=== PATIENT | female | born 1985 | race Caucasian/White ===

== ENCOUNTER 2017-08-22 13:24 | Emergency (ER) | payer SELFPAY ==
[2017-08-22 13:28] VITALS: O2SAT 97
--- NOTE | 2017-08-22 14:08 | EDPHY ---
H & P Stated Complaint: Possible 'spider bite' to left buttock for 3 days. HPI/ROS: CHIEF COMPLAINT: Rash, pain HISTORY OF PRESENT ILLNESS: Patient complains of 3-4 days of possible spider by and rash. This is located on the left labia and just distal to this. It does not involve perineum. At 1st it was mildly painful, but now moderate to severe. It has been constantly worsening. No drainage. No fluctuance. No vaginal pain or discharge. No vaginal bleeding. No pelvic pain. No abdominal pain. She does feel lymph node in the left groin. Worse with palpation. Minimal improvement rest. Sexually active with 1 partner who has no complaints of the genitalia. No fever or chills. No other associated complaints or modifying factors. Tetanus is up-to-date. No primary care physician. LMP 1 week ago REVIEW OF SYSTEMS: Ten systems reviewed and are negative unless otherwise noted in the HPI PAST MEDICAL HISTORY: None PAST SURGICAL HISTORY: None SOCIAL HISTORY: Smokes tobacco. Occasional alcohol. No illicit substance use. FAMILY HISTORY: Noncontributory EXAMINATION General Appearance: Alert, no distress Head: normocephalic, atraumatic Eyes: Pupils equal and round, no conjunctival pallor or injection ENT, Mouth: Mucous membranes moist Neck: Normal inspection, supple, non-tender Respiratory: No retractions or distress Cardiovascular: Regular rate. Pulses intact distally Gastrointestinal: Abdomen is soft and nontender. No tympany. No rigidity. 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 Shaved labia and mons. Folliculitis and cellulitis as depicted below. There is no Bartholin gland cyst. There is no abscess. No necrosis. No purulence. No vesicular lesions. No vaginal discharge. No perineum abnormality. Skin: Warm and dry. Skin changes as noted in the section. No abscess. No evidence of necrosis. No Bartholin's cyst Extremities: Nontender, no pedal edema Psychiatric: Mood and affect normal DIFFERENTIAL DIAGNOSES: Including but not limited to cellulitis, abscess, bartholin gland cyst, HSV, sexually transmitted infection MDM: 1:53 p.m. Cellulitis of the left labia and groin that I suspect is due to folliculitis from shaving. There is no evidence of Bartholin gland cyst. There is no abnormality of the perineum. There is no gangrenous appearance. Vital signs were well within normal limits. There is no drainable abscess. No vesicular lesions that i can appreciate. There is no lesion that needs to be drained. I do not feel there is any indication for laboratory studies or imaging. Urine sample will be obtained for gonorrhea and Chlamydia. Swabs were taken for the possibility of HSV. Elect to treat the patient empirically with Bactrim and Keflex for skin infection. I would like her to be closely monitored with re- evaluation in 1-2 days for the possibility of abscess formation. She is to refrain from further shaving of the genitalia. She will follow up on the results of the gonorrhea, chlamydia and HSV test. She is to return to ER for any pelvic pain, vaginal discharge or bleeding. She is to return here for any palpable fluctuance or drainage from the site. She is comfortable this plan and discharged home in stable condition Source: Patient Exam Limitations: No limitations - Personal History Current Tetanus Diphtheria and Acellular Pertussis (TDAP): Yes - Medical/Surgical History Hx Asthma: No Hx Chronic Respiratory Disease: No Hx Diabetes: No Hx Cardiac Disease: No Hx Renal Disease: No Hx Cirrhosis: No Hx Alcoholism: No Hx HIV/AIDS: No Hx Splenectomy or Spleen Trauma: No Other PMH: Depression, anxiety. - Social History Smoking Status: Heavy smoker Constitutional: Initial Vital Signs Temperature (C) 97.7 F 08/22/17 13:24 Heart Rate 81 08/22/17 13:24 Respiratory Rate 16 08/22/17 13:24 Blood Pressure 132/91 H 08/22/17 13:24 O2 Sat (%) 97 08/22/17 13:24 O2 Delivery Mode Room Air Allergies/Adverse Reactions: No Known Allergies Allergy (Unverified 08/22/17 13:28) Home Medications: Medication Instructions Recorded Cephalexin [Keflex (*)] 500 mg PO QID #40 cap 08/22/17 Sulfamethox/Tmp 800/160 mg 1 tab PO BID 10 Days tab 08/22/17 [Bactrim Ds] oxyCODONE HCL/ACETAMINOPHEN 1 each PO Q4-6PRN PRN #11 tablet 08/22/17 [Percocet 5-325 mg Tablet] ED Images - Female Images Genitals Female Closeup: 1 - folliculitis and cellulitis without abscess 2 - folliculitis and cellulitis without abscess. Medical Decision Making - Data Points Laboratory Results: 08/22/17 08/22/17 08/22/17 14:00 14:00 14:00 Urine Color DOMINIC Urine Appearance HAZY Urine pH 5.0 (5.0-7.5) Ur Specific Logan 1.028 (1.002-1.030) Urine Protein NEGATIVE (NEGATIVE) Urine Ketones 1+ H (NEGATIVE) Urine Blood NEGATIVE (NEGATIVE) Urine Nitrate NEGATIVE (NEGATIVE) Urine Bilirubin NEGATIVE (NEGATIVE) Urine Urobilinogen 4.0 EU H EU (0.2-1.0) Ur Leukocyte Esterase NEGATIVE (NEGATIVE) Urine RBC 5-10 /hpf H /hpf (0-3) Urine WBC 1-3 /hpf /hpf (0-3) Ur Epithelial Cells 1+ /lpf /lpf (NONE-1+) Urine Mucus 3+ /lpf H /lpf (NONE-1+) Urine Glucose NEGATIVE (NEGATIVE) C.trachomatis RNA (TMA) Pending HSV Source Description Pending HSV I DNA PCR Pending HSV II DNA PCR Pending N.gonorrhoeae RNA (TMA) Pending Departure - Departure Disposition: Home, Routine, Self-Care Clinical Impression: Folliculitis Cellulitis Qualifiers: Site of cellulitis: other site Qualified Code(s): L03.818 - Cellulitis of other sites Condition: Good Instructions: Cellulitis (ED), Folliculitis (ED) Additional Instructions: 1. Keep the area clean and dry 2. Recommend Sitz baths 3. Antibiotics as discussed 4. Close follow-up in 1-2 days for re-evaluation of the wound 5. ED precautions for worsening pain, purulence, fluctuance as described, vaginal pain, vaginal discharge, pelvic pain Referrals: NONE *PRIMARY CARE P,. [Primary Care Provider] - As per Instructions [facility],. [Clinic] - As per Instructions Tee Brewer MD [Medical Doctor] - As per Instructions Prescriptions: Cephalexin [Keflex (*)] 500 mg PO QID #40 cap oxyCODONE HCL/ACETAMINOPHEN [Percocet 5-325 mg Tablet] 1 each PO Q4-6PRN PRN # 11 tablet PRN Reason: Pain, Breakthrough Sulfamethox/Tmp 800/160 mg [Bactrim Ds] 1 tab PO BID 10 Days tab
[2017-08-22 14:10] VITALS: BP 128/91; PULSE 115; RESP 18; TEMP 99
[2017-08-22 14:34] LABS: COLOR AMBER; LEUKOCYTE ESTERASE,URINE NEGATIVE (NEGATIVE); MUCUS 3+ /lpf (NONE-1+); NITRITE,URINE NEGATIVE (NEGATIVE)
[2017-08-23 12:17] LABS: CHLAMYDIA AMPLIFICATION GENPRB NEGATIVE (NEGATIVE)
[2017-08-23 22:10] LABS: SPECIMEN SOURCE LEFT LABIA
== END 2017-08-22 14:18 | disposition home or self-care (01) ==
DX: L73.9 Follicular disorder, unspecified (principal); L03.818 Cellulitis of other sites; F17.200 Nicotine dependence, unspecified, uncomplicated
CPT/HCPCS: 87529-90

== ENCOUNTER → 2018-04-18 | Outpatient (CLI) | payer MEDICAID | LOC: FIMAGING 14:29 | PROVIDERS: ATTEND Physician Assistant | DX: O99.333 Smoking (tobacco) complicating pregnancy, third trimester (principal); Z3A.29 29 weeks gestation of pregnancy; Z98.891 History of uterine scar from previous surgery ==